=== PATIENT | female | born 1935 | race Hispanic/Latino ===

== ENCOUNTER 2017-02-12 09:56 | Outpatient (CLI) | payer MEDICARE ==
--- NOTE | 2017-02-12 11:04 | XRay Report ---
XRAY RIGHT KNEE 4 THREE VIEWS: 02/12/17 CLINICAL: Knee pain. FINDINGS: Status post total knee replacement with normal appearance of the prosthesis. No apparent loosening. Moderate diffuse osteopenia. No fracture or dislocation. No joint effusion.Normal soft tissues. IMPRESSION: Status post total knee replacement.
== END 2017-02-12 09:57 | disposition home or self-care (01) ==
LOC: SPVIMAG 09:56
PROVIDERS: ATTEND Orthopaedic Surgery Sports Medicine
DX: M85.861 Other specified disorders of bone density and structure, right lower leg (principal); Z96.651 Presence of right artificial knee joint

== ENCOUNTER 2017-03-10 13:53 | Outpatient (CLI) | payer MEDICARE ==
--- NOTE | 2017-03-10 14:56 | XRay Report ---
Right hip: Pain. The superior third of the right femoral head is compressed and there is mild sclerosis at the margin. The superior acetabular margin also appears somewhat flattened and there is a subchondral erosion. There is faint density consistent with calcium in the space between the medial neck and ischium. The lateral margin of the right ilium appears scalloped. Except for a small area of calcium adjacent to the lateral head the left hip is grossly normal for age. Evidence of prior fracture with healing involving the left ilium and ischium. 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 The bones are generally well mineralized. Impression: 1. The findings related to the right hip appear to be a combination of chronic deformity and possible more recent compression. 2. 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 3. Old left pelvic fracture. 4. Severe degenerative bone and disc changes of the lower lumbar spine.
== END 2017-03-10 13:54 | disposition home or self-care (01) ==
LOC: SPVIMAG 13:53
PROVIDERS: ATTEND Orthopaedic Surgery Sports Medicine
DX: M60.862 Other myositis, left lower leg (principal); M47.896 Other spondylosis, lumbar region; S32.89XD Fracture of other parts of pelvis, subsequent encounter for fracture with routine healing; M41.86 Other forms of scoliosis, lumbar region; M51.36 Other intervertebral disc degeneration, lumbar region; M25.551 Pain in right hip; X58.XXXD Exposure to other specified factors, subsequent encounter

== ENCOUNTER 2017-04-15 12:27 | Outpatient (CLI) | payer MEDICARE ==
--- NOTE | 2017-04-15 14:04 | XRay Report ---
XRAY RIGHT HIP TWO VIEWS: 04/15/17 12:27:00 CLINICAL: Right hip pain. COMPARISON: 03/10/17 FINDINGS: A total right hip are placement has been performed since the last exam. Normal appearance of the prosthesis. Mild arthritis of the left hip. Old fracture deformity of the left superior pubic ramus. Normal soft tissues. IMPRESSION: Normal right hip status post total hip replacement.
== END 2017-04-15 12:28 | disposition home or self-care (01) ==
LOC: SPVIMAG 12:27
PROVIDERS: ATTEND Orthopaedic Surgery Sports Medicine
DX: M25.551 Pain in right hip (principal); M16.12 Unilateral primary osteoarthritis, left hip; Z96.641 Presence of right artificial hip joint

== ENCOUNTER 2018-08-08 18:22 | Inpatient (IN) | payer MEDICARE ==
--- NOTE | 2018-08-08 18:36 | Emergency Department Report ---
Blank Doc - Documentation Documentation: This is a 83-year-old female that presents with right hip pain. Denies any new injuries. HX of hip replacement in 2018. This initial assessment/diagnostic orders/clinical plan/treatment(s) is/are subject to change based on patient's health status, clinical progression and re- assessment by fellow clinical providers in the ED. Further treatment and workup at subsequent clinical providers discretion. Patient/guardians urged not to elope from the ED as their condition may be serious if not clinically assessed and managed. Initial orders include: 1- Patient sent to [facility] for further evaluation and treatment 2- x-ray
--- NOTE | 2018-08-08 19:41 | XRay Report ---
PROCEDURE: XR PELVIS 1-2V TECHNIQUE: AP view of the pelvis HISTORY: right hip pain COMPARISONS: None available FINDINGS: There is been prior right hip arthroplasty. There is dislocation of the femoral prosthesis, which is now positioned superior to the right acetabulum. No fracture of the [place] bone is visible. Degenerat blank changes of the lumbar spine are noted. IMPRESSION: Right hip dislocation This document is electronically signed by Aileen Martinez MD., August 08 2018 08:39:38 PM ET
[2018-08-08] MEDS ORDERED: NACL 0.9% 500 ML 500 ML IV ONE (20:23)
[2018-08-08] MEDS ORDERED: DIPRIVAN 10 MG/ML IV ONE ×2 (20:23→21:06)
[2018-08-08] MEDS ORDERED: ZOFRAN IV ONE (20:23)
[2018-08-08] MEDS ORDERED: KETALAR IV ONE ×2 (20:23→21:06)
--- NOTE | 2018-08-08 20:25 | Emergency Department Report ---
ED Lower Extremity HPI - General Chief Complaint: Extremity Problem,Nontraumatic Stated Complaint: RT HIP SURGERY/PAIN Time Seen by Provider: 08/08/18 18:34 Source: patient Mode of arrival: Wheelchair Limitations: Physical Limitation - History of Present Illness Initial Comments: This is a pleasant 83-year-old female. The patient is not known to yumiko ureña previously. The patient reports having had a hip prosthesis performed in February 2018. She presents to the emergency room with a complaint of nontraumatic right-sided hip pain. The pain is constant and sharp. She feels like she is having difficulty walking. The pain does not radiate anywhere. She denies headache, neck pain, chest pain, abdominal pain, shortness of breath, focal extremity weakness. Her last time of oral intake was approximately 12 or 1:00 PM today. In the emergency room, she is found to have a spontaneous right-sided hip dislocation. Extensive discussion had with patient and regarding need for reduction, and we advised moderate sedation. Risks, benefits, alternatives were discussed with patient and family. They have given verbal and written consent for moderate sedation with closed reduction. Patient received 50 mg of propofol, 50 mg of ketamine, and the right hip was reduced using the captain Emre Reduction Technique. Afterwards, the patient was placed in an adductor pillow Discussed with orthopedics contact centre supervisor, Dr. Mullen, who agrees to follow in consultation. Case was presented to the Hospital physician, Dr. Alvarez, who accepts the patient to the medical service for further management of right-sided hip reduction. Patient endorses only medical history is type 2 diabetes which is fairly well controlled. MD Complaint: hip injury -: Sudden Injury: Hip: Right Type of Injury: unknown Place: home Severity: moderate Improves With: rest Worsens With: movement, palpation Associated Symptoms: able to partially bear weight - Related Data Allergies Allergy/AdvReac Type Severity Reaction Status Date / Time No Known Allergies Allergy Unverified 08/08/18 18:27 ED Review of Systems ROS: Stated complaint: RT HIP SURGERY/PAIN Other details as noted in HPI Constitutional: denies: fever Eyes: denies: eye discharge ENT: denies: epistaxis Respiratory: denies: cough Cardiovascular: denies: chest pain, palpitations Gastrointestinal: denies: abdominal pain Genitourinary: denies: dysuria Musculoskeletal: arthralgia, myalgia Skin: denies: lesions Neurological: denies: headache Psychiatric: denies: anxiety ED Past Medical Hx - Past Medical History Previous Medical History?: Yes Hx Diabetes: Yes - Surgical History Past Surgical History?: Yes Additional Surgical History: bilatteral knee and hip replacement - Social History Smoking Status: Never Smoker Substance Use Type: None ED Physical Exam - General Limitations: Physical Limitation General appearance: alert, in no apparent distress - Head Head exam: Present: atraumatic, normocephalic - Eye Eye exam: Present: normal appearance, EOMI. Absent: nystagmus - ENT ENT exam: Present: normal exam, normal orophraynx, mucous membranes moist, normal external ear exam - Neck Neck exam: Present: normal inspection, full ROM. Absent: tenderness, meningismus - Respiratory Respiratory exam: Present: normal lung sounds bilaterally. Absent: respiratory distress - Cardiovascular Cardiovascular Exam: Present: regular rate, normal rhythm. Absent: systolic murmur, diastolic murmur, rubs, gallop - GI/Abdominal GI/Abdominal exam: Present: soft. Absent: distended, tenderness, guarding, rebound, rigid, pulsatile mass - Extremities Exam Extremities exam: Present: full ROM (full range of motion in the bilateral upper extremities and left lower extremity. Range of motion intact in the right lower extremity and right ankle. And in right knee.), tenderness (there is proximal r ight-sided hip tenderness. There is no long bony tenderness.), other (2+ pulses noted in the bilateral upper, lower extremities. Compartments soft. No long bony tenderness. The pelvis is stable.). Absent: normal inspection (palpable deformity appreciated on right hip) - Back Exam Back exam: Present: normal inspection, full ROM. Absent: tenderness, CVA t enderness (R), CVA tenderness (L), paraspinal tenderness, vertebral tenderness - Neurological Exam Neurological exam: Present: alert, oriented X3, other (Extraocular movements intact. Tongue midline. No facial droop. Facial sensation intact to light touch in the V1, V2, V3 distribution bilaterally. 5 and 5 strength in 4 extremities.. Sensation is intact to light touch in 4 extremities.). Absent: motor sensory deficit - Psychiatric Psychiatric exam: Present: normal affect, normal mood - Skin Skin exam: Present: warm, dry, intact, normal color. Absent: rash ED Course Vital Signs 08/08/18 08/08/1808/08/19 18:35 20:22 20:25 Temperature 98.2 F Temperature [ Post-Procedure] Temperature [ Pre-Procedure] Pulse Rate 77 71 67 Pulse Rate [ Post-Procedure] Pulse Rate [Pre -Procedure] Respiratory 18 12 10 L Rate Respiratory Rate [Post- Procedure] Respiratory Rate [Pre- Procedure] Blood Pressure 157/76 Blood Pressure [Post-Procedure ] Blood Pressure [Pre-Procedure] O2 Sat by Pulse 98 98 100 Oximetry O2 Sat by Pulse Oximetry [Post -Procedure] O2 Sat by Pulse Oximetry [Pre- Procedure] 08/08/18 08/08/18 08/08/18 20:31 20:35 20:40 Temperature Temperature [ 98.3 F Post-Procedure] Temperature [ 98.2 F Pre-Procedure] Pulse Rate 68 68 71 Pulse Rate [ 72 Post-Procedure] Pulse Rate [Pre 75 -Procedure] Respiratory 9 L 12 11 L Rate Respiratory 16 Rate [Post- Procedure] Respiratory 16 Rate [Pre- Procedure] Blood Pressure 147/71 154/70 155/75 Blood Pressure 162/94 [Post-Procedure ] Blood Pressure 172/91 [Pre-Procedure] O2 Sat by Pulse 100 100 100 Oximetry O2 Sat by Pulse 100 Oximetry [Post -Procedure] O2 Sat by Pulse 100 Oximetry [Pre- Procedure] 08/08/18 08/08/18 08/08/18 20:45 20:46 20:47 Temperature Temperature [ Post-Procedure] Temperature [ Pre-Procedure] Pulse Rate 68 Pulse Rate [ Post-Procedure] Pulse Rate [Pre -Procedure] Respiratory 9 L 16 Rate Respiratory Rate [Post- Procedure] Respiratory Rate [Pre- Procedure] Blood Pressure 160/76 Blood Pressure [Post-Procedure ] Blood Pressure [Pre-Procedure] O2 Sat by Pulse 100 99 Oximetry O2 Sat by Pulse Oximetry [Post -Procedure] O2 Sat by Pulse Oximetry [Pre- Procedure] 08/08/18 08/08/18 08/08/18 20:50 20:55 20:58 Temperature Temperature [ Post-Procedure] Temperature [ Pre-Procedure] Pulse Rate 71 75 Pulse Rate [ Post-Procedure] Pulse Rate [Pre -Procedure] Respiratory 11 L 17 Rate Respiratory Rate [Post- Procedure] Respiratory Rate [Pre- Procedure] Blood Pressure 161/77 140/79 Blood Pressure [Post-Procedure ] Blood Pressure [Pre-Procedure] O2 Sat by Pulse 100 100 95 Oximetry O2 Sat by Pulse Oximetry [Post -Procedure] O2 Sat by Pulse Oximetry [Pre- Procedure] 08/08/18 08/08/18 08/08/18 21:00 21:05 21:08 Temperature Temperature [ Post-Procedure] Temperature [ Pre-Procedure] Pulse Rate 74 76 Pulse Rate [ Post-Procedure] Pulse Rate [Pre -Procedure] Respiratory 13 8 L Rate Respiratory Rate [Post- Procedure] Respiratory Rate [Pre- Procedure] Blood Pressure 155/74 175/77 Blood Pressure [Post-Procedure ] Blood Pressure [Pre-Procedure] O2 Sat by Pulse 100 99 100 Oximetry O2 Sat by Pulse Oximetry [Post -Procedure] O2 Sat by Pulse Oximetry [Pre- Procedure] 08/08/18 08/08/18 21:10 21:15 Temperature Temperature [ Post-Procedure] Temperature [ Pre-Procedure] Pulse Rate 75 76 Pulse Rate [ Post-Procedure] Pulse Rate [Pre -Procedure] Respiratory 10 L 7 L Rate Respiratory Rate [Post- Procedure] Respiratory Rate [Pre- Procedure] Blood Pressure 162/78 174/84 Blood Pressure [Post-Procedure ] Blood Pressure [Pre-Procedure] O2 Sat by Pulse 99 99 Oximetry O2 Sat by Pulse Oximetry [Post -Procedure] O2 Sat by Pulse Oximetry [Pre- Procedure] - Moderate Sedation Indications: fracture/dislocation redu Presedation Evaluation: Patient is an 83-year-old female, chronic history of diabetes, not a smoker, no issues with anesthesia, airway mallampati 1, asa 2 for age and dm type 2 ASA Class: II Mallampati Airway Score: 1 Preparation: monitor and storage bin tender applied, pulse oximeter, capnometry used, supplemental O2 applied, suction/airway equipment at bedside Ketamine: IV Ketamine Dose: 50 IV Propofol Dose (mgs): 50 Complications: vomiting/aspiration Interventions: oxygen applied, airway repositioned, assist by BVM Patient Tolerated Procedure: well Additional Comments: After the sedation, patient required airway repositioning, eggs valve mask ventilation. She recovered without incident. She is protecting her airway at this time, and has no respiratory complaints - Orthopedic Joint Reduction Joint #1 Consent Obtained: verbal consent, written consent, emergent situation Time Out Performed: Yes Side: right Joint Reduction Location: hip Analgesia: moderate sedation Technique Used: direct manipulation Post-Reduction Neuro Exam: intact Post-Reduction Vascular Exam: intact Post Reduction X-Ray Obtained: Yes Post Reduction X-Ray Results: reduced Splint Applied: Yes Patient Tolerated Procedure: well - Orthopedic Splinting/Casting Injury #1 Side: right Lower Extremity Injury Location: upper leg Other Orthopedic Equipment: other (adductor pillow) ED Lower Extremity MDM - Lab Data Result diagrams: 08/08/18 21:30 Vital Signs 08/08/18 08/08/18 08/08/18 18:35 20:22 20:25 Temperature 98.2 F Temperature [ Post-Procedure] Temperature [ Pre-Procedure] Pulse Rate 77 71 67 Pulse Rate [ Post-Procedure] Pulse Rate [Pre -Procedure] Respiratory 18 12 10 L Rate Respiratory Rate [Post- Procedure] Respiratory Rate [Pre- Procedure] Blood Pressure 157/76 Blood Pressure [Post-Procedure ] Blood Pressure [Pre-Procedure] O2 Sat by Pulse 98 98 100 Oximetry O2 Sat by Pulse Oximetry [Post -Procedure] O2 Sat by Pulse Oximetry [Pre- Procedure] 08/08/18 08/08/18 08/08/18 20:31 20:35 20:40 Temperature Temperature [ 98.3 F Post-Procedure] Temperature [ 98.2 F Pre-Procedure] Pulse Rate 68 68 71 Pulse Rate [ 72 Post-Procedure] Pulse Rate [Pre 75 -Procedure] Respiratory 9 L 12 11 L Rate Respiratory 16 Rate [Post- Procedure] Respiratory 16 Rate [Pre- Procedure] Blood Pressure 147/71 154/70 155/75 Blood Pressure 162/94 [Post-Procedure ] Blood Pressure 172/91 [Pre-Procedure] O2 Sat by Pulse 100 100 100 Oximetry O2 Sat by Pulse 100 Oximetry [Post -Procedure] O2 Sat by Pulse 100 Oximetry [Pre- Procedure] 08/08/18 08/08/18 08/08/18 20:45 20:46 20:47 Temperature Temperature [ Post-Procedure] Temperature [ Pre-Procedure] Pulse Rate 68 Pulse Rate [ Post-Procedure] Pulse Rate [Pre -Procedure] Respiratory 9 L 16 Rate Respiratory Rate [Post- Procedure] Respiratory Rate [Pre- Procedure] Blood Pressure 160/76 Blood Pressure [Post-Procedure ] Blood Pressure [Pre-Procedure] O2 Sat by Pulse 100 99 Oximetry O2 Sat by Pulse Oximetry [Post -Procedure] O2 Sat by Pulse Oximetry [Pre- Procedure] 08/08/18 08/08/18 08/08/18 20:50 20:55 20:58 Temperature Temperature [ Post-Procedure] Temperature [ Pre-Procedure] Pulse Rate 71 75 Pulse Rate [ Post-Procedure] Pulse Rate [Pre -Procedure] Respiratory 11 L 17 Rate Respiratory Rate [Post- Procedure] Respiratory Rate [Pre- Procedure] Blood Pressure 161/77 140/79 Blood Pressure [Post-Procedure ] Blood Pressure [Pre-Procedure] O2 Sat by Pulse 100 100 95 Oximetry O2 Sat by Pulse Oximetry [Post -Procedure] O2 Sat by Pulse Oximetry [Pre- Procedure] 08/08/18 08/08/18 08/08/18 21:00 21:05 21:08 Temperature Temperature [ Post-Procedure] Temperature [ Pre-Procedure] Pulse Rate 74 76 Pulse Rate [ Post-Procedure] Pulse Rate [Pre -Procedure] Respiratory 13 8 L Rate Respiratory Rate [Post- Procedure] Respiratory Rate [Pre- Procedure] Blood Pressure 155/74 175/77 Blood Pressure [Post-Procedure ] Blood Pressure [Pre-Procedure] O2 Sat by Pulse 100 99 100 Oximetry O2 Sat by Pulse Oximetry [Post -Procedure] O2 Sat by Pulse Oximetry [Pre- Procedure] 08/08/18 08/08/18 21:10 21:15 Temperature Temperature [ Post-Procedure] Temperature [ Pre-Procedure] Pulse Rate 75 76 Pulse Rate [ Post-Procedure] Pulse Rate [Pre -Procedure] Respiratory 10 L 7 L Rate Respiratory Rate [Post- Procedure] Respiratory Rate [Pre- Procedure] Blood Pressure 162/78 174/84 Blood Pressure [Post-Procedure ] Blood Pressure [Pre-Procedure] O2 Sat by Pulse 99 99 Oximetry O2 Sat by Pulse Oximetry [Post -Procedure] O2 Sat by Pulse Oximetry [Pre- Procedure] Lab Results 08/08/18 Range/Units 21:30 WBC 7.5 (4.5-11.0) K/mm3 RBC 3.54 L (3.65-5.03) M/mm3 Hgb 10.3 (10.1-14.3) gm/dl Hct 30.2 L (30.3-42.9) % MCV 86 (79-97) fl MCH 29 (28-32) pg MCHC 34 (30-34) % RDW 14.9 (13.2-15.2) % Plt Count 317 (140-440) K/mm3 - Radiology Data Radiology results: report reviewed, image reviewed Print Report Referring Physician: MYRNA BEATTY Patient Name: MONICA MATA Date of : 1935 Sex: Female Report Date: 2018-08-08 Report Status: Finalized Findings [address] [address] XRay Report Signed Patient: MONICA MATA MR#: [id number] 19 : 1935 Acct:[id number] Age/Sex: 83 / F ADM Date: 08/08/18 Loc: ED Attending Dr: Ordering Physician: MYRNA BEATTY MD Date of Service: 08/08/18 Procedure(s): XR pelvis 1-2V Accession Number(s): [id number] cc: MYRNA BEATTY MD Fluoro Time In Minutes: PROCEDURE: XR PELVIS 1-2V TECHNIQUE: Single view HISTORY: s/p redu ction COMPARISONS: Earlier the same day FINDINGS: There is right hip replacement with complex acetabular component. Alignment is near-anatomic. There is reduction of previously seen dislocation of the femoral component. There is no acute fracture. Catheter overlying the patient IMPRESSION: Reduction of dislocation of right hip prosthesis. This document is electronically signed by Jj Samson MD., August 08 2018 10:44:22 PM ET Transcribed By: [facility] Dictated By: JJ SAMSON MD Electronically Authenticated By: JJ SAMSON MD Signed Date/Time: 08/08/182145 Print Report Referring Physician: JOHN LORENZO Patient Name: MONICA MATA Date of : 1935 Sex: Female Report Date: 2018-08-08 Report Status: Finalized Findings [address] [address] XRay Report Signed Patient: MONICA MATA MR#: [id number] [birth year] : 1935 Acct:[id number] Age/Sex: 83 / F ADM Date: 08/08/18 Loc: ED Attending Dr: Ordering Physician: JOHN LORENZO NP Date of Service: 08/08/18 Procedure(s): XR pelvis 1-2V Accession Number(s): [id number] cc: JOHN LORENZO NP Fluoro Time In Minutes: PROCEDURE: XR PELVIS 1-2V TECHNIQUE: AP view of the pelvis HISTORY: right hip pain COMPARISONS: None available FINDINGS: There is been prior right hip arthroplasty. There is dislocation of the femoral prosthesis, which is now positioned superior to the right acetabulum. No fracture of the [place] bone is visible. Degenerative changes of the lumbar spine are noted. IMPRESSION: Right hip dislocation This document is electronically signed by Aileen Martinez MD., August 08 2018 08:39:38 PM ET Transcribed By: [facility] Dictated By: AILEEN MARTINEZ M.D. Electronically Authenticated By: AILEEN MARTINEZ M.D. Signed Date/Time: 08/08/181940 - Medical Decision Making Differential diagnosis, including but not limited to: Right-sided hip dislocation Assessment and plan: 83-year-old female with successful reduction of spontaneous right sided hip dislocation. She does not appear to have any other injuries or any other complaints. She is neurovascularly intact. She has recovered nicely from sedation. She will be admitted to the inpatient service for further evaluation and management, orthopedic consultation. Critical care attestation.: If time is entered above; I have spent that time in minutes in the direct care of this critically ill patient, excluding procedure time. ED Disposition Clinical Impression: Hip dislocation, right Qualifiers: Encounter type: initial encounter Qualified Code(s): S73.004A - Unspecified dislocation of right hip, initial encounter Disposition: OP ADMIT IP TO THIS HOSP Is pt being admited?: Yes Does the pt Need Aspirin: No Condition: Good Referrals: LEX KAPOOR MD [Primary Care Provider] - 3-5 Days
[2018-08-08] MEDS ORDERED: NACL 0.9% 1000 ML 1,000 ML ONE (20:32)
--- NOTE | 2018-08-08 21:46 | XRay Report ---
PROCEDURE: XR PELVIS 1-2V TECHNIQUE: Single view HISTORY: s/p reduction COMPARISONS: Earlier the same day FINDINGS: There is right hip replacement with complex acetabular component. Alignment is near-anatomic. There i s reduction of previously seen dislocation of the femoral component. There is no acute fracture. Catheter overlying the patient IMPRESSION: Reduction of dislocation of right hip prosthesis. This document is electronically signed by Luther Vee MD., August 08 2018 10:44:22 PM ET
[2018-08-08 21:53] LABS: Hematocrit 30.2 % (30.3-42.9); Hemoglobin 10.3 gm/dl (10.1-14.3); Mean Corpuscular HGB Conc 34 % (30-34); Mean Corpuscular Volume 86 fl (79-97); Platelet Count 317 K/mm3 (140-440); Red Blood Count 3.54 M/mm3 (3.65-5.03); Red Cell Distribution Width 14.9 % (13.2-15.2)
[2018-08-08] MEDS ORDERED: D50W (25GM) Syringe IV PRN (22:13)
[2018-08-08 22:14] LABS: BUN/Creatinine Ratio 18; Blood Urea Nitrogen 14 mg/dL (7-17); Calcium 9.4 mg/dL (8.4-10.2); Hemolysis Index 6
[2018-08-08] MEDS ORDERED: TYLENOL PO PRN (22:47)
[2018-08-08] MEDS ORDERED: SODIUM CHLORIDE FLUSH SYRINGE 10 ML IV PRN (22:47)
[2018-08-08] MEDS ORDERED: ZOFRAN IV PRN (22:47)
[2018-08-08] MEDS ORDERED: PERCOCET 5/325 PO PRN (22:47)
--- NOTE | 2018-08-08 23:53 | History and Physical Report ---
History of Present Illness Date of examination: 08/08/18 Date of admission: 08/08/18 22:12 History of present illness: 83-year-old woman with a history of hypertension, diabetes was sitting on her couch and had difficulty getting up, complaining of right hip pain. She was brought to the emergency room for evaluation. She has a history of bilateral hip replacement, the right hip was dislocated, this was reduced in the emergency room Review of systems Constitutional: no weight loss, chills, fever Ears, eyes, nose, mouth and throat: no nasal congestion, no nasal discharge, no sinus pressure, no vision change, no red eye. Neck: No neck pain or rigidity. Cardiovascular: no palpitations, chest pain Respiratory: no cough, shortness of breath Gastrointestinal: no hematochezia, abdominal pain Genitourinary : no frequency , no hematuria Musculoskeletal: no joint swelling or muscle ache Integumentary: no rash, no pruritis Neurological: no parathesias, no focal weakness Endocrine: no cold or heat intolerance, no polyuria or polydipsia Hematologic/Lymphatic: no easy bruising, no easy bleeding, no gland swelling Allergic/Immunologic: no urticaria, no angioedema. PAST MEDICAL HISTORY:hypertension, diabetes PAST SURGICAL HISTORY: Bilateral hip and knee replacement, back surgery 2, appendectomy, cholecystectomy, tonsillectomy SOCIAL HISTORY: Denies alcohol, drugs, tobacco FAMILY HISTORY: Hypertension Medications and Allergies Allergies Allergy/AdvReac Type Severity Reaction Status Date / Time No Known Allergies Allergy Unverified 08/08/18 18:27 Active Meds: Active Medications Acetaminophen (Tylenol) 650 mg PO Q4H PRN PRN Reason: Pain MILD(1-3)/Fever >100.5/VELASCO Dextrose (D50w (25gm) Syringe) 50 ml IV PRN PRN PRN Reason: Hypoglycemia Enoxaparin Sodium (Lovenox) 40 mg SUB-Q QDAY CLARE Insulin Human Lispro (Humalog) 0 unit SUB-Q ACHS CLARE; Protocol Ondansetron HCl (Zofran) 4 mg IV Q8H PRN PRN Reason: Nausea And Vomiting Oxycodone/Acetaminophen (Percocet 5/325) 1 tab PO Q6H PRN PRN Reason: Pain, Moderate (4-6) Sodium Chloride (Sodium Chloride Flush Syringe 10 Ml) 10 ml IV BID CLARE Sodium Chloride (Sodium Chloride Flush Syringe 10 Ml) 10 ml IV PRN PRN PRN Reason: LINE FLUSH Exam - Physical Exam Narrative exam: General Apperance: The patient lying in bed, breathing comfortable HEENT: Normocephalic, atraumatic. Pupils equally round and reactive to light, EOMI, no sclericterus or JVD or thyromegaly or nodule. , no carotid bruit, mucous membranes moist, no exudate or erythema Heart: S1-S2, regular is rhythm Lungs: Clear to auscultation bilaterally, breathing comfortable Abdomen: Positive bowel sounds, soft, nontender, nondistended, no organomegaly Extremities: No edema cyanosis clubbing Skin: no rash, nodule, warm and dry Neuro: cranial nerves 2-12 intact, speech is fluent, sensory intact - Constitutional Vitals: Temp Pulse Resp BP Pulse Ox 98.2 F 67 8 L 146/68 96 08/08/18 23:05 08/08/18 22:30 08/08/18 22:30 08/08/18 22:45 08/08/18 22:30 Results - Labs CBC & Chem 7: 08/08/18 21:30 08/08/18 21:30 Labs: Abnormal lab results 08/08/18 08/08/18 Range/Units 21:30 21:30 RBC 3.54 L (3.65-5.03) M/mm3 Hct 30.2 L (30.3-42.9) % Glucose 101 H (65-100) mg/dL Total Creatine Kinase 174 H (30-135) units/L Assessment and Plan pelvic xray reviewed Assessment Right hip dislocation, s/p reduction Hypertension diabetes Plan Admit to medicine Consult orthopedic, percocet for pain Fingersticks and initiate insulin sliding scale Continue appropriate outpatient medications DVT prophylaxis
[2018-08-08] MEDS ORDERED: APRESOLINE IV PRN (23:58)
[2018-08-09 04:56] LABS: Basophils # (Auto) 0.1 K/mm3 (0.0-0.1); Basophils % (Auto) 1.1 % (0.0-1.8); Eosinophils # (Auto) 0.2 K/mm3 (0.0-0.4); Eosinophils % (Auto) 3.1 % (0.0-4.3); Hemoglobin 9.9 gm/dl (10.1-14.3); Lymphocytes # (Auto) 1.7 K/mm3 (1.2-5.4); Lymphocytes % (Auto) 22.7 % (13.4-35.0); Mean Corpuscular HGB Conc 34 % (30-34); Mean Corpuscular Volume 85 fl (79-97); Monocytes # (Auto) 0.6 K/mm3 (0.0-0.8); Monocytes % (Auto) 8.2 % (0.0-7.3); Platelet Count 304 K/mm3 (140-440); Red Blood Count 3.41 M/mm3 (3.65-5.03)
[2018-08-09 05:20] LABS: BUN/Creatinine Ratio 16; Blood Urea Nitrogen 13 mg/dL (7-17); Calcium 9.7 mg/dL (8.4-10.2); Hemolysis Index 3
[2018-08-09] MEDS: HumaLOG SUB-Q SCH ×2 (08:59→11:51)
[2018-08-09] MEDS ORDERED: LOVENOX SUB-Q SCH (10:00)
[2018-08-09] MEDS ORDERED: SODIUM CHLORIDE FLUSH SYRINGE 10 ML IV SCH (10:00)
[2018-08-09 12:05] VITALS: BP 158/75
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
--- NOTE | 2018-08-09 16:31 | Discharge Summary ---
Providers - Providers Date of Admission: 08/08/18 22:12 Date of discharge: 08/09/18 Attending physician: CORNELIO GEORGE 08/08/18 21:04 Consult to Case Management [CONS] Stat Services Needed at Discharge: Physical Therapy Notified:: awaiting call back Consult to Physician [CONS] Urgent Comment: Dr. Grullon spoke with Dr. 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 She had a mechanicl fall about 3-4 days ago, she was able to get up and move around but over time she could not bear weight on the right leg. Pelvic Xrays showed right hip dislocation, so a closed reduction was performed under IV sedation in the emergency department * 1-2v XR pelvis Impression: Right hip dislocation Discharge Diagnoses: Right hip dislocation, s/p closed reduction right prosthetic hip dislocation doing well, ok to discharge by Ortho per RN- Ortho Recommendations -will apply a knee immobilizer to the right lower extremity patient to be up weightbearing as tolerated patient was instructed to wear the immobilizer for approximately 4 weeks Hypertension DM type 2 OA, patient states she had DEXA scan for osteoporosis last year Disposition: TO HOME OR SELFCARE Time spent for discharge: 31 minutes Core Measure Documentation - Palliative Care Palliative Care/ Comfort Measures: Not Applicable - Core Measures Any of the following diagnoses?: none - VTE Discharge Requirements Deep Vein Thrombosis/Pulmonary Embolism Present on Admission: No Has pt received <5 days of overlap therapy or INR<2.0: No Anticoagulant overlap therapy prescribed at discharge: No Contraindication No Overlap Therapy order at DC: Not Indicated Exam - Physical Exam Narrative exam: Gen: WDWN, NAD, Awake, Alert, Orientated HEENT: NCAT, EOMI, PERRL, OP Clear Neck: supple, no adenopathy, no thyromegaly, no JVD CVS/Heart: RRR, normal S1S2, pulses present bilaterally Chest/Lungs: CTA B, Symmetrical chest exddfpansion, good air entry bilaterally GI/Abdomen: soft, NTND, good bowel sounds, no guarding or rebound /Bladder: no suprapubic tenderness, no CVA or paraspinal tenderness Extermity/Skin: no c/c/e, no obvious rash MSK: FROM x 4 Neuro: CN 2-12 grossly intact, no new focal deficits Psych: calm - Constitutional Vitals: Temp Pulse Resp BP Pulse Ox 97.5 F L 74 18 158/75 96 08/09/18 11:00 08/09/18 11:00 08/09/18 11:00 08/09/18 11:00 08/09/18 11:00 Plan Activity: other (no strenous activity unless cleared by PCP) Weight Bearing Status: Weight Bear as Tolerated Diet: low salt, diabetic Special Instructions: record daily BP diary, record blood sugar diary Follow up with: LEX KAPOOR MD [Primary Care Provider] - 3-5 Days KOKO MULLEN MD [Staff Physician] - 7 Days
== END 2018-08-09 17:42 | disposition home health service (06) | DRG 561 ==
LOC: ED 18:22 → 3B-SURG 22:12
PROVIDERS: ADMIT Internal Medicine; ATTEND Internal Medicine
PROC: 2W3NX1Z Immobilization of Right Upper Leg using Splint (ICD-10-PCS; principal; 2018-08-08)
PROC: 0SS9XZZ Reposition Right Hip Joint, External Approach (ICD-10-PCS; 2018-08-08)
DX: T84.020A Dislocation of internal right hip prosthesis, initial encounter (principal); E11.9 Type 2 diabetes mellitus without complications; I10 Essential (primary) hypertension; M19.90 Unspecified osteoarthritis, unspecified site; Y83.8 Other surgical procedures as the cause of abnormal reaction of the patient, or of later complication, without mention of misadventure at the time of the procedure; Y92.89 Other specified places as the place of occurrence of the external cause; W18.30XA Fall on same level, unspecified, initial encounter; Y93.89 Activity, other specified; Y99.8 Other external cause status; Z96.643 Presence of artificial hip joint, bilateral; Z96.653 Presence of artificial knee joint, bilateral; Z90.49 Acquired absence of other specified parts of digestive tract
CPT/HCPCS: 36415; 72170; 80048; 82550; 82962; 85025; 85027; 94760; 96374; G0378; J1650; J2405; J2704; J7030